=== PATIENT | male | born 1960 | race Caucasian/White ===

== ENCOUNTER → 2021-10-30 | Day surgery (SDC) | payer OTHER ==
[~2021-10-30] VITALS: Ht 177.8 cm; Wt 133.9 kg
[~2021-10-30] MED LIST: CYMBALTA20 MG PO; INDERAL20 MG PO; METFORMIN HCL750 MG PO; NEURONTIN300 MG PO; OZEMPIC0.25 MG/0. SC; TAMSULOSIN HCL0.4 MG PO; VITAMIN B-121000 MCG PO; VITAMIN D350 MCG PO
[2021-10-30 08:07] LABS: HCT 44.2 % (42.0-52.0); HGB 15.2 g/dl (13.2-18.0); MCH 32.2 pg (25.0-31.0); MCHC 34.4 g/dL (32.0-36.0); MCV 93.6 fL (78.0-100.0); MPV 10.6 fL (6.0-9.5); RBC 4.72 M/uL (4.70-6.00); RDW 13.2 % (11.5-14.0); WBC 5.3 K/uL (4.0-10.5)
[2021-10-30 08:38] LABS: ALBUMIN 3.3 g/dL (3.4-5.0); BILIRUBIN - TOTAL 1.4 mg/dL (0.2-1.0); BUN/CREAT RATIO (CALC) 12.7 RATIO; CREATININE 0.55 mg/dL (0.67-1.17); GLOBULIN (CALCULATION) 3.8 g/dL; TOTAL PROTEIN 7.1 g/dL (6.4-8.2)
== END | disposition home or self-care (01) ==
LOC: FAS 07:27
PROVIDERS: Surgery
DX: Z12.11 Encounter for screening for malignant neoplasm of colon (principal); K57.30 Diverticulosis of large intestine without perforation or abscess without bleeding; K58.9 Irritable bowel syndrome, unspecified; E11.9 Type 2 diabetes mellitus without complications; Z87.891 Personal history of nicotine dependence
CPT/HCPCS: 36415; 80053; J1610; J2704; J7120